=== PATIENT | female | born 1995 | race Caucasian/White ===

== ENCOUNTER 2017-03-08 12:33 | Emergency (ER) | payer MEDICAID ==
[2017-03-08 12:40] VITALS: O2SAT 100
--- NOTE | 2017-03-08 13:08 | ED PDOC ---
HPI: Female Pain Time Seen by Provider: 03/08/17 12:58 Chief Complaint (Nursing): Female Genitourinary Chief Complaint (Provider): lower abdominal pain History Per: Patient (21 y/o female here for evaluation of right sided lower abdominal pain that has started suddenly 1.5 weeks ago and persistent since. Notes urinary frequency with hesitancy. Notes worsening with bending right leg. Has had recent chlamydia diagnosis and treatment 4 weeks prior. (took zithromax four tablets at that time). Was given outpatient ultrasound rx but unable to make appointment. No fevers/chills. No vomiting. ) Past Medical History Reviewed: Historical Data, Nursing Documentation, Vital Signs Vital Signs: Last Vital Signs Temp 98.9 F 03/08/17 12:36 Pulse 70 03/08/17 12:36 Resp 18 03/08/17 12:36 BP 119/72 03/08/17 12:36 Pulse Ox 100 03/08/17 12:36 - Surgical History Surgical History: Tonsillectomy - Family History Family History: States: No Known Family Hx - Immunization History Hx Tetanus Toxoid Vaccination: Yes Hx Influenza Vaccination: Yes Hx Pneumococcal Vaccination: Yes - Home Medications Home Medications: Ambulatory Orders Medication Instructions Recorded Ondansetron [Zofran Odt] 4 mg PO TID #10 odt 10/16/15 Naproxen [Naprosyn] 500 mg PO Q12H #20 tab 10/20/15 Naproxen 1 tab PO BID PRN #10 tab 03/08/17 - Allergies Allergies/Adverse Reactions: Allergies Allergy/AdvReac Type Severity Reaction Status Date / Time No Known Allergies Allergy Verified 05/01/15 00:54 Review of Systems ROS Statement: Except As Marked, All Systems Reviewed And Found Negative Physical Exam - Reviewed Nursing Documentation Reviewed: Yes Vital Signs Reviewed: Yes - Physical Exam Appears: Positive for: Well, Non-toxic, No Acute Distress Head Exam: Positive for: ATRAUMATIC, NORMAL INSPECTION, NORMOCEPHALIC Skin: Positive for: Normal Color, Warm, DRY Eye Exam: Positive for: EOMI, Normal appearance, PERRL ENT: Positive for: Normal ENT Inspection Neck: Positive for: Normal, Painless ROM Cardiovascular/Chest: Positive for: Regular Rate, Rhythm Respiratory: Positive for: CNT, Normal Breath Sounds Gastrointestinal/Abdominal: Positive for: Normal Exam, Bowel Sounds, Soft Pelvic Exam: Positive for: Tender Adnexa (minimal right adnexal tenderness; no cmt; minimal vaginal discharge noted. cervix wnl) Back: Positive for: Normal Inspection Extremity: Positive for: Normal ROM Neurologic/Psych: Positive for: Alert, Oriented - Laboratory Results Urine POC: Negative Urine dip results: Negative for: Leukocyte Esterase, Blood, Nitrate, Ketones, Glucose, Bilirubin, Protein - ECG O2 Sat by Pulse Oximetry: 100 - Progress ED Course And Treament: US transvaginal: 1.9 cm left ovarian follicle/cyst naproxen 500 mg x 1 dose d/w patient h/o chlamydia infection. States she had urine testing not cerivcial swab and was given zithromax po x 1 dose. Denies any treatment for gonorrhea. would like to be treated for STD here. Zithromax 1 gm Rocephin 250mg IM x 1 dose Disposition - Clinical Impression Clinical Impression: Pelvic pain - Patient ED Disposition Is Patient to be Admitted: No - Disposition Disposition: Routine/Home Disposition Time: 18:00 Condition: FAIR Prescriptions: Naproxen 1 tab PO BID PRN #10 tab PRN Reason: Pain, Moderate (4-7) Instructions: Pelvic Pain in Women (ED) Forms: [facility] ED School/Work Excuse
[2017-03-08 13:44] LABS: SQUAMOUS EPITHIAL 2 /hpf (0-5); URINE AMORPHOUS SEDIMENT RARE /ul (<OCC); URINE BILIRUBIN NEGATIVE (NEGATIVE); URINE BLOOD NEGATIVE (NEGATIVE); URINE CLARITY CLEAR (Clear); URINE COLOR YELLOW (YELLOW); URINE GLUCOSE (UA) NEG (Normal); URINE LEUKOCYTE ESTERASE NEG Leu/uL (Negative); URINE NITRATE NEGATIVE (NEGATIVE); URINE PROTEIN NEGATIVE (NEGATIVE); URINE UROBILINOGEN 0.2-1.0 mg/dL (0.2-1.0)
[2017-03-08] MEDS ORDERED: Naproxen 500 MG TAB PO STA (14:42)
[2017-03-08] MEDS ORDERED: Naproxen 500 MG TAB PO ONE (14:44)
--- NOTE | 2017-03-08 17:30 | US ---
HISTORY: right adnexal tenderness r/o ovarian cyst vs abscess COMPARISON: None available. TECHNIQUE: Transvaginal pelvic ultrasound FINDINGS: UTERUS: Measures 6.9 x 2.5 x 3.7 cm. Anteverted. ENDOMETRIUM: Measures 9 mm in diameter. CERVIX: No cervical abnormality identified. RIGHT OVARY: Measures 2.5 x 1.9 x 2.6 cm. Blood flow is demonstrated. Follicles. LEFT OVARY: Measures 3.2 x 2.1 x 3.4 cm. Blood flow is demonstrated. 1.9 cm left ovarian follicle/cyst. Additional small follicles. FREE FLUID: No significant free fluid noted. OTHER FINDINGS: None. IMPRESSION: 1.9 cm left ovarian follicle/cyst.
[2017-03-08] MEDS ORDERED: cefTRIAXone (Rocephin) 250 mg Inj IM ONE (17:48)
[2017-03-08] MEDS ORDERED: Sterile Water 10 ML IV ONE (18:08)
[2017-03-08] MEDS ORDERED: cefTRIAXone (Rocephin) 250 mg Inj ONE (18:09)
[2017-03-08 18:19] VITALS: BP 116/68; PULSE 69; RESP 16; TEMP 98.3
== END 2017-03-08 18:17 | disposition home or self-care (01) ==
LOC: H.ER 12:33
DX: R10.2 Pelvic and perineal pain (principal)